=== PATIENT | male | born 1945 | race Caucasian/White ===

== ENCOUNTER 2018-02-07 04:15 | Inpatient (IN) | payer OTHER, MEDICARE ==
[~2018-02-07] VITALS: Ht 182.9 cm; Wt 102.0 kg
[~2018-02-07 04:15] MED LIST: ACEHYDSO; ASPI81EC; CIPHYDOTSU; DILT360ER; FLUV40; GABA300; GLYB5; HYDMETSO; INS70/30I; LISI20; METF500; METO50; MORP30ER; NEOBACHC15; NIAC500; OMEP20ER; SPIR50
[2018-02-07] MEDS ORDERED: ALBU90OI INH (04:36)
[2018-02-07] MEDS ORDERED: AMLO10 PO (04:36)
[2018-02-07] MEDS ORDERED: VITAMIN C500 M1 PO (04:38)
[2018-02-07] MEDS ORDERED: GERI-HYDROLAC222 ML TOP (04:38)
[2018-02-07] MEDS ORDERED: CALCIPOTRIENE60 G1 TOP (04:39)
[2018-02-07] MEDS ORDERED: ATOR10 PO (04:39)
[2018-02-07] MEDS ORDERED: CARV25 PO (04:40)
[2018-02-07] MEDS ORDERED: CHOL10002 PO (04:40)
[2018-02-07] MEDS ORDERED: DULO30 PO (04:41)
[2018-02-07] MEDS ORDERED: VITAMIN D250000 UNIT PO (04:41)
[2018-02-07] MEDS ORDERED: FURO40 PO (04:43)
[2018-02-07] MEDS ORDERED: FLONASE ALLERG9.9 ML (04:43)
[2018-02-07] MEDS ORDERED: HYDRA50 PO (04:44)
[2018-02-07] MEDS ORDERED: INSR10I SC ×2 (04:45→04:46)
[2018-02-07] MEDS ORDERED: Omeprazole20 M1 PO (04:47)
[2018-02-07] MEDS ORDERED: Acidophilus La100 GM PO (04:47)
[2018-02-07] MEDS ORDERED: OXYC5 PO (04:49)
[2018-02-07] MEDS ORDERED: Oxycodone HCl20 M1 PO (04:50)
[2018-02-07] MEDS ORDERED: POTCHL10ER PO (04:50)
[2018-02-07] MEDS ORDERED: PRAZ2 PO (04:52)
[2018-02-07] MEDS ORDERED: TIOT18 INH (04:52)
[2018-02-07] MEDS ORDERED: WARF5 PO (04:53)
[2018-02-07 06:41] LABS: Percent Saturation 14.4 % (20.0-50.0)
[2018-02-07] MEDS ORDERED: FISH OIL 1,0001 EAC1 PO (07:49)
[2018-02-08 04:53] LABS: International Normalized Ratio 2.91; Prothrombin Time Results 31.3 Sec (9.7-11.5)
[2018-02-08 04:59] LABS: Bun/Creatinine Ratio 19.5 (12.0-20.0); Calcium, Blood 8.6 mg/dL (8.5-10.1); Creatinine, Blood 2.15 mg/dL (0.60-1.20); Potassium, Blood 4.3 mmol/L (3.5-5.5)
[2018-02-08] MEDS ORDERED: INSULANPEN SC ×2 (07:41→07:42)
[2018-02-09 04:23] LABS: International Normalized Ratio 1.89; Prothrombin Time Results 20.1 Sec (9.7-11.5)
[2018-02-09 04:30] LABS: Bun/Creatinine Ratio 20.9 (12.0-20.0); Calcium, Blood 8.6 mg/dL (8.5-10.1); Creatinine, Blood 2.54 mg/dL (0.60-1.20)
[2018-02-10 04:24] LABS: International Normalized Ratio 1.83; Prothrombin Time Results 19.4 Sec (9.7-11.5)
[2018-02-10 04:41] LABS: Albumin, Blood 2.5 g/dL (3.4-5.0); Anion Gap 9 mmol/L (6-16); Blood Urea Nitrogen 60 mg/dL (8-24); Bun/Creatinine Ratio 24.9 (12.0-20.0); CO2, Blood 25 mmol/L (21-32); Calcium, Blood 8.3 mg/dL (8.5-10.1); Chloride, Blood 108 mmol/L (98-108); Creatinine, Blood 2.41 mg/dL (0.60-1.20); Glomerular Filtration Rate 28 (60-); Glucose, Blood 154 mg/dL (70-99); Phosphorus, Blood 4.3 mg/dL (2.5-4.9); Potassium, Blood 4.6 mmol/L (3.5-5.5); Sodium, Blood 142 mmol/L (136-145)
[2018-02-10] MEDS ORDERED: VISBIOME 112.51 EACH PO (10:17)
== END 2018-02-10 10:38 | disposition home or self-care (01) | DRG 291 ==
LOC: ER 04:15 → PCU 04:22 → MEDS 05:39 → PCU 05:41 → MEDS 02-08 15:34
PROVIDERS: Family Medicine; Internal Medicine
DX: I13.0 Hypertensive heart and chronic kidney disease with heart failure and stage 1 through stage 4 chronic kidney disease, or unspecified chronic kidney disease (principal); I50.33 Acute on chronic diastolic (congestive) heart failure; N17.9 Acute kidney failure, unspecified; E11.22 Type 2 diabetes mellitus with diabetic chronic kidney disease; N18.3 Chronic kidney disease, stage 3 (moderate); R00.1 Bradycardia, unspecified; I48.2 Chronic atrial fibrillation; J44.9 Chronic obstructive pulmonary disease, unspecified; E55.9 Vitamin D deficiency, unspecified; D50.9 Iron deficiency anemia, unspecified; E78.5 Hyperlipidemia, unspecified; E11.51 Type 2 diabetes mellitus with diabetic peripheral angiopathy without gangrene; F43.12 Post-traumatic stress disorder, chronic; E11.40 Type 2 diabetes mellitus with diabetic neuropathy, unspecified; Z79.01 Long term (current) use of anticoagulants; Z79.4 Long term (current) use of insulin; Z79.891 Long term (current) use of opiate analgesic; Z79.51 Long term (current) use of inhaled steroids; Z79.899 Other long term (current) drug therapy; Z88.1 Allergy status to other antibiotic agents; Z88.5 Allergy status to narcotic agent; Z88.0 Allergy status to penicillin; Z88.8 Allergy status to other drugs, medicaments and biological substances
CPT/HCPCS: 36415; 80048; 80069; 82728; 82947; 83036; 83540; 83550; 85610; 93306; 94640; 94760; 99285; J1815; J1940

== ENCOUNTER 2018-10-15 11:44 | Day surgery (SDC) | payer OTHER ==
[~2018-10-15] VITALS: Ht 182.9 cm; Wt 97.1 kg
[~2018-10-15 11:44] MED LIST changes: +ALBU90OI INH; +AMLO10 PO; +ATOR10 PO; +Acidophilus La100 GM PO; +CALCIPOTRIENE60 G1 TOP; +CARV25 PO; +CHOL10002 PO; +DULO30 PO; +FISH OIL 1,0001 EAC1 PO; +FLONASE ALLERG9.9 ML; +FURO40 PO; +GERI-HYDROLAC222 ML TOP; +HYDRA50 PO; +INSR10I SC; +INSULANPEN SC; +OXYC5 PO; +Omeprazole20 M1 PO; +Oxycodone HCl20 M1 PO; +POTCHL10ER PO; +PRAZ2 PO; +TIOT18 INH; +VISBIOME 112.51 EACH PO; +VITAMIN C500 M1 PO; +VITAMIN D250000 UNIT PO; +WARF5 PO
--- NOTE | 2018-10-15 14:20 | NUR ---
10/15/18 1420 Candice Natarajan [facility].RXS RECIEVED REPORT FROM [facility].[place]
== END 2018-10-15 15:44 | disposition home or self-care (01) ==
LOC: ORSCSDS 11:44
PROVIDERS: Internal Medicine Gastroenterology
PROC: 0DBN8ZX Excision of Sigmoid Colon, Via Natural or Artificial Opening Endoscopic, Diagnostic (ICD-10-PCS; principal; 2018-10-15 13:00)
PROC: 0DBK8ZX Excision of Ascending Colon, Via Natural or Artificial Opening Endoscopic, Diagnostic (ICD-10-PCS; principal; 2018-10-15 13:00)
PROC: 0DBH8ZX Excision of Cecum, Via Natural or Artificial Opening Endoscopic, Diagnostic (ICD-10-PCS; principal; 2018-10-15 13:00)
PROC: 0DBL8ZX Excision of Transverse Colon, Via Natural or Artificial Opening Endoscopic, Diagnostic (ICD-10-PCS; principal; 2018-10-15 13:00)
DX: Z12.11 Encounter for screening for malignant neoplasm of colon (principal); Z80.0 Family history of malignant neoplasm of digestive organs; Z86.010 Personal history of colon polyps; D12.3 Benign neoplasm of transverse colon; D12.2 Benign neoplasm of ascending colon; D12.0 Benign neoplasm of cecum; D12.5 Benign neoplasm of sigmoid colon; I10 Essential (primary) hypertension; J44.9 Chronic obstructive pulmonary disease, unspecified; G47.33 Obstructive sleep apnea (adult) (pediatric); E11.9 Type 2 diabetes mellitus without complications; Z87.891 Personal history of nicotine dependence; Z99.81 Dependence on supplemental oxygen; Z79.01 Long term (current) use of anticoagulants; Z79.899 Other long term (current) drug therapy
CPT/HCPCS: 82947; 88305; 93005; 93010; J7040; J7120

== ENCOUNTER 2019-07-01 10:19 | Inpatient (IN) | payer OTHER ==
[~2019-07-01] VITALS: Ht 182.9 cm; Wt 90.0 kg
[~2019-07-01 10:19] MED LIST changes: +HYDRA25 PO; -HYDRA50 PO; +OXYC10TA19 PO; -Oxycodone HCl20 M1 PO; -PRAZ2 PO; +Prazosin HCl2 MG PO
[2019-07-01 11:11] LABS: BASOPHILS ABSOLUTE AUTO 0.03 K/mm3 (0.00-0.23); BASOPHILS PERCENT AUTO 1 % (0-2); EOSINOPHILS PERCENT AUTO 4 % (0-6); Hematocrit 31.1 % (37.0-53.0); Hemoglobin 9.5 g/dL (13.5-17.5); IMMATURE GRAN ABSOLUTE AUTO 0.02 K/mm3 (0.00-0.10); IMMATURE GRAN PERCENT AUTO 0 % (0-1); LYMPHOCYTES ABSOLUTE AUTO 0.48 K/mm3 (0.84-5.20); LYMPHOCYTES PERCENT AUTO 8 % (21-46); MONOCYTES ABSOLUTE AUTO 0.63 K/mm3 (0.16-1.47); MONOCYTES PERCENT AUTO 11 % (4-13); Mean Corpuscular HGB 30.2 pg (26.0-34.0); Mean Corpuscular HGB Conc 30.5 g/dL (31.5-36.5); Mean Corpuscular Volume 99 fL (80-100); Mean Platelet Volume 9.5 fL (9.1-12.4); NEUTROPHILS ABSOLUTE AUTO 4.34 K/mm3 (1.96-9.15); NEUTROPHILS PERCENT AUTO 76 % (41-73); Platelet Count 167 K/mm3 (150-400); RDW Coefficient Variation 14.1 % (11.7-14.2); RDW Standard Deviation 50.8 fL (35.1-46.3); Red Blood Cell Count 3.15 M/mm3 (4.30-5.90)
[2019-07-01 11:28] LABS: Albumin, Blood 3.2 g/dL (3.4-5.0); Albumin/Globulin Ratio 0.9 (0.8-1.8); Bilirubin, Total 0.6 mg/dL (0.1-1.0); Bun/Creatinine Ratio 23.3 (12.0-20.0); Calcium, Blood 8.4 mg/dL (8.5-10.1); Creatinine, Blood 3.61 mg/dL (0.60-1.20); Globulin, Blood 3.5 g/dL (2.2-4.0); Potassium, Blood 3.8 mmol/L (3.5-5.5); Total Protein, Blood 6.7 g/dL (6.4-8.2)
[2019-07-01] MEDS ORDERED: FERSU300 PO (11:56)
[2019-07-01] MEDS ORDERED: Novolog100 UNIT/1 SC (11:59)
[2019-07-01] MEDS ORDERED: BASAGLAR K100 UNIT/1 SC (12:00)
[2019-07-01] MEDS ORDERED: Isosorbide Mono60 MG PO (12:01)
[2019-07-01] MEDS ORDERED: Vision Vitamin1 EAC1 PO (12:01)
[2019-07-01] MEDS ORDERED: STIOLTO RESPIMAT4 GM INH (12:02)
[2019-07-01] MEDS ORDERED: RENAL VITAMIN0.8 MG PO (12:04)
[2019-07-01] MEDS ORDERED: Ranitidine HCl300 M1 PO (12:04)
[2019-07-01] MEDS ORDERED: PROP120ER PO (12:04)
[2019-07-01] MEDS ORDERED: SODBIC650 PO (12:05)
[2019-07-01] MEDS ORDERED: Ropinirole HCl2 MG PO (12:05)
[2019-07-01] MEDS ORDERED: TORSE20 PO (12:06)
[2019-07-01] MEDS ORDERED: SUCR1 PO (12:06)
[2019-07-01] MEDS ORDERED: WARF2.5 PO (12:08)
[2019-07-01 13:44] LABS: Source, Urine Voided
[2019-07-01 13:57] LABS: Bilirubin, Urine Neg (Neg); Blood, Urine 2+ (Neg); Glucose Qualitative, Urine Neg (Neg); Ketones, Urine Neg (Neg); Leukocyte Esterase, Urine 2+ (Neg); Nitrite, Urine Pos (Neg); Protein, Urine 3+ (Neg); Urobilinogen, Urine NORM (Normal)
[2019-07-01 14:08] LABS: Appearance, Urine Hazy (Clear); Color, Urine Yellow (P-Yellow)
[2019-07-01 14:10] LABS: White Blood Cells, Urine 50-100 /hpf (0-5)
[2019-07-01 14:11] LABS: Bacteria Few /hpf; Squamous Epithelial Cells Few /hpf (Few)
[2019-07-01 14:30] LABS: International Normalized Ratio 3.12; Prothrombin Time Results 29.8 Sec (9.7-11.5)
--- NOTE | 2019-07-01 16:50 | NUR ---
PT. ARRIVED TO FLOOR VIA CART FROM ER. PT. A&O, PLEASANT AND COOPERATIVE. NO CHANGES NOTED SINCE ARRIVAL TO FLOOR.
[2019-07-02 04:53] LABS: BASOPHILS ABSOLUTE AUTO 0.01 K/mm3 (0.00-0.23); BASOPHILS PERCENT AUTO 0 % (0-2); EOSINOPHILS ABSOLUTE AUTO 0.11 K/mm3 (0.00-0.68); EOSINOPHILS PERCENT AUTO 2 % (0-6); Hemoglobin 9.8 g/dL (13.5-17.5); IMMATURE GRAN ABSOLUTE AUTO 0.02 K/mm3 (0.00-0.10); IMMATURE GRAN PERCENT AUTO 0 % (0-1); LYMPHOCYTES ABSOLUTE AUTO 0.37 K/mm3 (0.84-5.20); LYMPHOCYTES PERCENT AUTO 6 % (21-46); MONOCYTES ABSOLUTE AUTO 0.48 K/mm3 (0.16-1.47); MONOCYTES PERCENT AUTO 8 % (4-13); Mean Corpuscular HGB 29.7 pg (26.0-34.0); Mean Corpuscular HGB Conc 29.7 g/dL (31.5-36.5); Mean Corpuscular Volume 100 fL (80-100); Mean Platelet Volume 9.5 fL (9.1-12.4); NEUTROPHILS ABSOLUTE AUTO 5.08 K/mm3 (1.96-9.15); NEUTROPHILS PERCENT AUTO 84 % (41-73); Platelet Count 153 K/mm3 (150-400); RDW Coefficient Variation 14.3 % (11.7-14.2); RDW Standard Deviation 51.7 fL (35.1-46.3); White Blood Cell Count 6.07 K/mm3 (4.00-11.30)
--- NOTE | 2019-07-02 05:06 | NUR ---
SHIFT SUMMARY: 73 Y/O MALE SBA IN THE ROOM. WHO HAS SLEPT OFF AND ON THROUGHOUT THE NIGHT, HE DID WAKE UP THIS NIGHT WITH HULLUCINATIONS OF BUGS ON HIS BED AND DID NOT KNOW WHERE HE WAS AT. HE WAS EASILY REORIENTED. HE DID COMPLAIN OF PAIN X1 TO HIS LEGS AND BACK. REPOSITION AND MEDS WERE GIVEN. EDEMA NOTICED +2 TO BLE. BS WAS 172 LANTUS WAS GIVEN. HE REQUIRED INHALER USE AT HOME THEREFORE GOT ORDER FOR ALBUTEROL NEBULIZER TREATMENTS. HE RECIEVED 2 TX THIS SHIFT WHICH HELPED TO RELEIVE HIS BREATHING. URINE OUTPUT 650 OF YET THIS SHIFT. MEDS WERE GIVEN PER EMAR. CALL LIGHT REMAINED IN REACH AND USED APPROPRIATLY, WILL REPORT TO DAY SHIFT RN.
[2019-07-02 05:07] LABS: International Normalized Ratio 3.19; Prothrombin Time Results 30.4 Sec (9.7-11.5)
[2019-07-02 05:26] LABS: Albumin, Blood 2.9 g/dL (3.4-5.0); Anion Gap 9 mmol/L (6-16); Blood Urea Nitrogen 78 mg/dL (8-24); Bun/Creatinine Ratio 23.5 (12.0-20.0); CO2, Blood 20 mmol/L (21-32); Calcium, Blood 8.1 mg/dL (8.5-10.1); Chloride, Blood 114 mmol/L (98-108); Creatinine, Blood 3.32 mg/dL (0.60-1.20); Glomerular Filtration Rate 18 (60-); Glucose, Blood 173 mg/dL (70-99); Phosphorus, Blood 4.5 mg/dL (2.5-4.9); Sodium, Blood 143 mmol/L (136-145)
[2019-07-02] MEDS ORDERED: ANTI-ITCH LOTI222 ML TOP (16:06)
--- NOTE | 2019-07-02 18:06 | NUR ---
Spiritual Care intial note: Saad was welcoming of companionship and encouragement. He is not particularly denominational, but was appreciaitive of theraputic listening and gentle business and financial counsel. He listed he reasons for hospitalization as :"I'm starting dialysis, my prostrate cancer is back, and they're gonna amputate my toes." He is calm as he reports this. "I don't worry about things. What's the point?" Saad cares for his sister is also quite ill. He admits he is worried about how his illnesses will affect her. I assured Saad of excellent care and encouraged patience until clear POC is determined. Also advised there is help available in the community when/if they need it. Saad will benefit from continued emotional support as POC unfolds. [facility] will remain available.
--- NOTE | 2019-07-02 19:19 | NUR ---
PT. SITTING IN BED WATCHING TV. DENIES PAIN, SOB, OR NAUSEA AT THIS TIME. DR. RICHARDSON CAME TO SEE PT. THIS AFTERNOON AND REQUESTED WE KEEP HIM NPO AFTER MIDNOC. NO NOTEABLE CHANGES THIS SHIFT.
[2019-07-03 05:08] LABS: BASOPHILS ABSOLUTE AUTO 0.01 K/mm3 (0.00-0.23); BASOPHILS PERCENT AUTO 0 % (0-2); EOSINOPHILS ABSOLUTE AUTO 0.21 K/mm3 (0.00-0.68); EOSINOPHILS PERCENT AUTO 3 % (0-6); Hematocrit 32.2 % (37.0-53.0); Hemoglobin 9.7 g/dL (13.5-17.5); IMMATURE GRAN ABSOLUTE AUTO 0.01 K/mm3 (0.00-0.10); IMMATURE GRAN PERCENT AUTO 0 % (0-1); LYMPHOCYTES ABSOLUTE AUTO 0.31 K/mm3 (0.84-5.20); LYMPHOCYTES PERCENT AUTO 5 % (21-46); MONOCYTES ABSOLUTE AUTO 0.54 K/mm3 (0.16-1.47); MONOCYTES PERCENT AUTO 9 % (4-13); Mean Corpuscular HGB 29.9 pg (26.0-34.0); Mean Corpuscular HGB Conc 30.1 g/dL (31.5-36.5); Mean Corpuscular Volume 99 fL (80-100); Mean Platelet Volume 9.6 fL (9.1-12.4); NEUTROPHILS ABSOLUTE AUTO 5.25 K/mm3 (1.96-9.15); NEUTROPHILS PERCENT AUTO 83 % (41-73); Platelet Count 174 K/mm3 (150-400); RDW Coefficient Variation 14.3 % (11.7-14.2); RDW Standard Deviation 52.2 fL (35.1-46.3); Red Blood Cell Count 3.24 M/mm3 (4.30-5.90); White Blood Cell Count 6.33 K/mm3 (4.00-11.30)
[2019-07-03 05:30] LABS: International Normalized Ratio 2.69; Prothrombin Time Results 26.1 Sec (9.7-11.5)
[2019-07-03 05:32] LABS: Anion Gap 7 mmol/L (6-16); Blood Urea Nitrogen 74 mg/dL (8-24); Bun/Creatinine Ratio 23.3 (12.0-20.0); CO2, Blood 24 mmol/L (21-32); Calcium, Blood 8.4 mg/dL (8.5-10.1); Chloride, Blood 112 mmol/L (98-108); Creatinine, Blood 3.17 mg/dL (0.60-1.20); Glomerular Filtration Rate 21 (60-); Glucose, Blood 165 mg/dL (70-99); Phosphorus, Blood 3.5 mg/dL (2.5-4.9); Sodium, Blood 143 mmol/L (136-145)
--- NOTE | 2019-07-03 06:18 | NUR ---
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 PT AAOX4 AND PLEASANT. CONTINUES ON IV ABX. PT DENIES PAIN OF WOUND ON L FOOT. MRI SCREENING FORM SENT FOR PT TO FILL OUT FOR LATER THIS AM, HOWEVER PT REPORTS HE CAN'T HAVE AN MRI DUE TO A PREVIOUS BRAIN SURGERY. VSS, WILL CONTINUE TO MONITOR.
--- NOTE | 2019-07-03 16:27 | NUR ---
SHIFT SUMMARY PLAN FOR SURGERY DELAYED TILL SATURDAY OR SATURDAY NEXT WEEK. PT GIVEN ADA DIET. TOLERATING WELL. PT FLUIDS DC'ED AT THIS TIME WHILE PT IS EATING & DRINKING. NO OTHER CHANGES IN ASSESSMENT AT THIS TIME. VSS. MEDICATED FOR PAIN ONCE THIS SHIFT. WILL CONTINUE TO MONITOR UNTIL TURNOVER IS COMPLETE.
--- NOTE | 2019-07-03 18:42 | NUR ---
PT DESATED PT DESATED TO 86 ON RA. PT PLACED BACK ON 2L O2 VIA NC. PT SATING IN THE S NOW. RT NOTIFIED. WILL CONTINUE TO MONITOR.
[2019-07-04 04:33] LABS: BASOPHILS ABSOLUTE AUTO 0.02 K/mm3 (0.00-0.23); BASOPHILS PERCENT AUTO 0 % (0-2); EOSINOPHILS ABSOLUTE AUTO 0.21 K/mm3 (0.00-0.68); EOSINOPHILS PERCENT AUTO 4 % (0-6); Hematocrit 32.1 % (37.0-53.0); Hemoglobin 9.8 g/dL (13.5-17.5); IMMATURE GRAN ABSOLUTE AUTO 0.02 K/mm3 (0.00-0.10); IMMATURE GRAN PERCENT AUTO 0 % (0-1); LYMPHOCYTES ABSOLUTE AUTO 0.43 K/mm3 (0.84-5.20); LYMPHOCYTES PERCENT AUTO 7 % (21-46); MONOCYTES ABSOLUTE AUTO 0.57 K/mm3 (0.16-1.47); MONOCYTES PERCENT AUTO 10 % (4-13); Mean Corpuscular HGB 30.2 pg (26.0-34.0); Mean Corpuscular HGB Conc 30.5 g/dL (31.5-36.5); Mean Corpuscular Volume 99 fL (80-100); Mean Platelet Volume 9.2 fL (9.1-12.4); NEUTROPHILS ABSOLUTE AUTO 4.72 K/mm3 (1.96-9.15); NEUTROPHILS PERCENT AUTO 79 % (41-73); Platelet Count 165 K/mm3 (150-400); RDW Coefficient Variation 14.3 % (11.7-14.2); RDW Standard Deviation 52.4 fL (35.1-46.3); Red Blood Cell Count 3.25 M/mm3 (4.30-5.90); White Blood Cell Count 5.97 K/mm3 (4.00-11.30)
[2019-07-04 04:49] LABS: International Normalized Ratio 2.04; Prothrombin Time Results 20.3 Sec (9.7-11.5)
[2019-07-04 04:53] LABS: Anion Gap 7 mmol/L (6-16); Blood Urea Nitrogen 75 mg/dL (8-24); Bun/Creatinine Ratio 24.8 (12.0-20.0); CO2, Blood 23 mmol/L (21-32); Calcium, Blood 8.5 mg/dL (8.5-10.1); Chloride, Blood 113 mmol/L (98-108); Creatinine, Blood 3.03 mg/dL (0.60-1.20); Glomerular Filtration Rate 22 (60-); Glucose, Blood 170 mg/dL (70-99); Phosphorus, Blood 3.3 mg/dL (2.5-4.9); Potassium, Blood 3.9 mmol/L (3.5-5.5); Sodium, Blood 143 mmol/L (136-145)
--- NOTE | 2019-07-04 05:01 | NUR ---
SHIFT SUMMARY: PT IS ALERT AND ORIENTED. PT IS CALM AND COOPERATIVE WITH CARE. PT CALLS APPROPRIATELY. PT IS A STANDBY ASSIST. PT WENT FOR CT OF LLE EARLY IN THE SHIFT. PT REPORTS INTERMITTENT SOB, O2 2 L PRN, BREATHING TREATMENTS PRN. PT REPORTS LLE PAIN ON ONE OCCASION, GAVE PRN OXYCODONE. PT DENIES NAUSEA AND VOMITING. PT SLEPT INTERMITTENTLY THROUGHOUT THE NIGHT. BED IN LOW POSITION, CALL LIGHT WITHIN REACH. WILL CONTINUE TO MONITOR.
--- NOTE | 2019-07-04 18:30 | NUR ---
SHIFT SUMMARY PATIENT ALERT AND ORIENTED X4, STANDBY ASSIST. C/O CHRONIC BILAT LOWER LEG ACHING/THROBBING PAIN, GIVEN OXYCODONE ONCE. HE STATES THERE IS SOME NEW PAIN ON THE INSIDE OF THE L KNEE AREA, THERE IS SLIGHT REDNESS. COUMADIN HELD FOR POSSIBLE SURGERY SATURDAY. BILAT PEDAL PULSES ARE THREADY, R FOOT HAS +2 EDEMA, L FOOT HAS +1. PT VOIDING WELL, LUNGS CTA.
--- NOTE | 2019-07-05 03:26 | NUR ---
SHIFT SUMMARY: PT IS ALERT AND ORIENTED. PT IS CALM, FRIENDLY, AND COOPERATIVE WITH CARE. PT CALLS APPROPRIATELY. PT IS A STANDBY ASSIST. PT CONTINUES TO REPORT BLE PAIN, CALLED DR. OVIEDO AND RECEIVED AN INCREASE IN FREQUENCY FOR THE OXYCODONE TO Q6H PRN. PT REPORTS INTERMITTENT SOB O2 NEEDED, SATS > 90%. PT DENIES NAUSEA AND VOMITING. PT SLEPT INTERMITTENTLY THROUGHOUT THE NIGHT. NO ACUTE CHANGES OR COMPLICATIONS. WILL CONTINUE TO MONITOR.
[2019-07-05 04:39] LABS: Hematocrit 31.3 % (37.0-53.0); Hemoglobin 9.5 g/dL (13.5-17.5)
[2019-07-05 04:54] LABS: International Normalized Ratio 2.04; Prothrombin Time Results 20.3 Sec (9.7-11.5)
[2019-07-05 05:03] LABS: Anion Gap 8 mmol/L (6-16); Blood Urea Nitrogen 78 mg/dL (8-24); CO2, Blood 23 mmol/L (21-32); Calcium, Blood 8.4 mg/dL (8.5-10.1); Chloride, Blood 113 mmol/L (98-108); Glomerular Filtration Rate 22 (60-); Glucose, Blood 95 mg/dL (70-99); Potassium, Blood 3.7 mmol/L (3.5-5.5); Sodium, Blood 144 mmol/L (136-145)
--- NOTE | 2019-07-05 18:30 | NUR ---
SHIFT SUMMARY NO ACUTE CHANGES OR COMPLICATIONS WITH PATIENT. PT CALLS APPROPRIATELY, VOIDING WELL, BLOOD SUGARS CONTROLLED. PATIENT WALKED IN FLEMING WITH FWW. PT WEARS 2L 02 PRN, WEARING NOW.
--- NOTE | 2019-07-06 04:31 | NUR ---
SHIFT SUMMARY- PT. A&O, PLEASANT AND COOPERATIVE WITH CARE. SBA WITH WALKER. SCHEDULED FOR SURGERY THIS AM FOR AMPUTATION OF THE THIRD MIDDLE TOE OF THE LET FOOT DUE TO OSTEOMYELITIS. PT. HAS BEEN NPO SINCE MIDNIGHT. ON VIA OH. REQUESTED PAIN MEDICATION X1 T/O THE NIGHT. RESTED WELL T/O THE SHIFT. DENIED ANY OTHER NEEDS. CALL LIGHT WITHIN REACH AND SIDE RAILS UP X2. WILL CONT TO MONITOR.
[2019-07-06 05:07] LABS: BASOPHILS ABSOLUTE AUTO 0.01 K/mm3 (0.00-0.23); BASOPHILS PERCENT AUTO 0 % (0-2); EOSINOPHILS ABSOLUTE AUTO 0.27 K/mm3 (0.00-0.68); EOSINOPHILS PERCENT AUTO 5 % (0-6); Hemoglobin 8.8 g/dL (13.5-17.5); IMMATURE GRAN ABSOLUTE AUTO 0.03 K/mm3 (0.00-0.10); IMMATURE GRAN PERCENT AUTO 1 % (0-1); LYMPHOCYTES PERCENT AUTO 9 % (21-46); MONOCYTES ABSOLUTE AUTO 0.74 K/mm3 (0.16-1.47); MONOCYTES PERCENT AUTO 13 % (4-13); Mean Corpuscular HGB Conc 30.3 g/dL (31.5-36.5); Mean Corpuscular Volume 99 fL (80-100); Mean Platelet Volume 9.4 fL (9.1-12.4); NEUTROPHILS ABSOLUTE AUTO 4.13 K/mm3 (1.96-9.15); NEUTROPHILS PERCENT AUTO 73 % (41-73); Platelet Count 147 K/mm3 (150-400); RDW Coefficient Variation 14.1 % (11.7-14.2); RDW Standard Deviation 51.3 fL (35.1-46.3); Red Blood Cell Count 2.93 M/mm3 (4.30-5.90); White Blood Cell Count 5.68 K/mm3 (4.00-11.30)
[2019-07-06 05:24] LABS: Albumin, Blood 2.8 g/dL (3.4-5.0); Anion Gap 6 mmol/L (6-16); Blood Urea Nitrogen 82 mg/dL (8-24); Bun/Creatinine Ratio 26.6 (12.0-20.0); CO2, Blood 27 mmol/L (21-32); Calcium, Blood 8.3 mg/dL (8.5-10.1); Chloride, Blood 112 mmol/L (98-108); Creatinine, Blood 3.08 mg/dL (0.60-1.20); Glomerular Filtration Rate 21 (60-); Glucose, Blood 96 mg/dL (70-99); Phosphorus, Blood 3.4 mg/dL (2.5-4.9); Potassium, Blood 3.5 mmol/L (3.5-5.5); Sodium, Blood 145 mmol/L (136-145)
[2019-07-06 05:24] LABS: International Normalized Ratio 1.7; Prothrombin Time Results 17.2 Sec (9.7-11.5)
--- NOTE | 2019-07-06 11:16 | NUR ---
Physician notified Dr. Giron notified RE noon blood sugar of 69. Orders received.
--- NOTE | 2019-07-06 15:13 | NUR ---
Advance directive packet given for pt and family to review. will follow up with plan of care and pain managment after surgery
--- NOTE | 2019-07-06 16:42 | NUR ---
Spiritual Care routine visit: Prayer for a successful surgery provided at bedside. Two of his sisters were present. Pt and family appreciative of spiritual support. Surgery this afternoon. I will remain available.
--- NOTE | 2019-07-06 17:55 | NUR ---
Shift Summary A/Ox4. Pleasant and cooperative with care. Pt had family visiting t/o the day. Surgery for amputation of toe is dc'd per Dr. Boles; Dr. Garrison consulted by Elvi. Medicated for pain x 1. No c/o N/V/D. Pt ambulating in room independently. Adventitious lung sounds auscultated (see assessment). Blood sugar check was 69 @ noon. Orders received and given per EMAR. Blood sugars were reassessed t/o shift. Before dinner, it was 84. No other acute changes this shift.
--- NOTE | 2019-07-07 04:42 | NUR ---
SHIFT SUMMARY- PT. RESTED WELL T/O THE NIGHT. BS LAST NIGHT AT 292. CHANGE IN FLUID RATE DONE PER ORDER. PAIN MED GIVEN 1X THIS SHIFT. PT. DENIED ANY OTHER NEEDS T/O THE NIGHT. AWAITING F/U WITH DR. MELENDEZ, CALL LIGHT WITHIN REACH AND SIDE RAILS UP X2. WILL CONT TO MONITOR.
[2019-07-07 05:06] LABS: International Normalized Ratio 1.58; Prothrombin Time Results 16.1 Sec (9.7-11.5)
--- NOTE | 2019-07-07 18:15 | NUR ---
PHYSICIAN NOTIFIED DR. MELENDEZ NOTIFIED WHETHER TO HOLD OR GIVE COUMADIN D/T POSSIBLE PROCEDURE TOMORROW. PER MD ORDER, COUMADIN HELD.
--- NOTE | 2019-07-07 18:45 | NUR ---
Shift Summary A/O x 4. Pt has been up independently in room. There is a possible chance pt may get a procedure tomorrow to revascularize left leg by Dr. Garrison; however, Felipe has been consulted d/t kidney status. No acute changes this shift. Pt is eager to know next steps. VSS, afebrile.
--- NOTE | 2019-07-08 04:39 | NUR ---
SHIFT SUMMARY- PT. SLEPT ON/OFF T/O THE NIGHT, NO APPARENT DISTRESS NOTED. PT. ANTICIPATING FOR DR. MELENDEZ TO PERFORM REVASCULARIZATION. DR. PICKARD TO F/U RE KIDNEY STATUS BEFORE PROCEDURE. PT. ON IV ABX'S, TOLERATING WELL. VSS, BUT O2 SATS AT 88% ON RA. PLACED PT. ON 2L NC, SATS UP TO 93%. PT. GIVEN PAIN MED 1X THIS EVENING. DENIED ANY NEEDS T/O THE NIGHT. CALL LIGHT WITHIN REACH AND SIDE RAILS UP X2. WILL CONT TO MONITOR.
[2019-07-08 04:49] LABS: Hematocrit 30.7 % (37.0-53.0); Hemoglobin 9.3 g/dL (13.5-17.5); Mean Corpuscular HGB 29.5 pg (26.0-34.0); Mean Corpuscular HGB Conc 30.3 g/dL (31.5-36.5); Mean Corpuscular Volume 98 fL (80-100); Mean Platelet Volume 9.5 fL (9.1-12.4); Platelet Count 151 K/mm3 (150-400); RDW Coefficient Variation 14.1 % (11.7-14.2); Red Blood Cell Count 3.15 M/mm3 (4.30-5.90); White Blood Cell Count 5.36 K/mm3 (4.00-11.30)
[2019-07-08 05:02] LABS: International Normalized Ratio 1.61; Prothrombin Time Results 16.3 Sec (9.7-11.5)
[2019-07-08 05:09] LABS: Albumin, Blood 3.1 g/dL (3.4-5.0); Anion Gap 8 mmol/L (6-16); Blood Urea Nitrogen 87 mg/dL (8-24); Bun/Creatinine Ratio 26.8 (12.0-20.0); CO2, Blood 27 mmol/L (21-32); Calcium, Blood 8.4 mg/dL (8.5-10.1); Chloride, Blood 105 mmol/L (98-108); Creatinine, Blood 3.25 mg/dL (0.60-1.20); Glomerular Filtration Rate 20 (60-); Glucose, Blood 223 mg/dL (70-99); Magnesium, Blood 1.8 mg/dL (1.6-2.4); Potassium, Blood 3.5 mmol/L (3.5-5.5); Sodium, Blood 140 mmol/L (136-145)
--- NOTE | 2019-07-08 16:13 | NUR ---
HE IS SITTING UP AT THE SIDE OF THE BED WORKING A CROSSWORD PUZZLE. HE IS UP USUALLY WITH SBA TO THE BATHROOM. HE HAS WORKED WITH PT/OT TODAY. HE IS SOB AT REST AND WITH ACTIVITY. ON RA HE SATS 89 TO 91% AT REST AND WENT DOWN TO 82% WHEN AMBULATING WITH PT. O2 ON AT 2L BECAUSE OF SATS AND HIS FEELING OF SOB. HAS DECIDED NOT TO DO THE REVASCULARIZATION PROCEDURE D/T ELIO'S POOR KIDNEY FUNCTION. HAS ASKED FOR TO SEE ELIO REGARDING ANTIBIOTIC CHOICE FOR THE OSTEOMYELITIS. HIS 3 TOES ON HIS L FOOT ARE DRY WITH SMALL SPOTS OF BLUE/BLACK DISCOLORATION. D5W 25/HR STILL INFUSING. TEDS ON BILAT. EDEMA PRESENT. MEDICATED X1 WITH OXYCODONE FOR PAIN IN HIS LEGS. IT WAS EFFECTIVE BRINGING HIS PAIN DOWN FROM 7 TO A 3.
--- NOTE | 2019-07-08 18:40 | NUR ---
Spiritual Care routine visit: Provided calm presence, theraputic listening and prayer for Saad. He states he is waiting for POC. He admits to being "a little worried." I will remain available.
--- NOTE | 2019-07-09 04:07 | NUR ---
PATIENT UNCOMFORTABLE AROUND MIDNIGHT COMPLAINING OF INABILITY TO GET TO SLEEP AND BILATERAL LEG PAIN AND FOOT PAIN. (PRIMARILY LEFT FOOT) STATED LEGS FELT "CUT OFF" IN [place]ZI STOCKINGS. STOCKINGS REMOVED AND A RECLINING CHAIR WAS BROUGHT IN FOR THE PATIENT SO THAT HE WOULD NOT SIT WITH LEGS DANGLING OVER SIDE OF BED. PAIN MUCH LESS INTENSE AND TOLERABLE AFTER APPROXIMATELY 20 MINUTES. SLEPT MOST OF NIGHT AFTER THAT. WOKE CONFUSED AND NOT WEARING 02. SATURATION CHECKED BEFORE REPLACED WAS 88%. PATIENT SAT INCREASED TO 94 WITHIN 1 -2 MINUTES. TOLERATING iv ANTIBIOTICS WITHOUT DIFFICULTY. ASKED IF HE MAY HAVE A SLEEPING MED ORDERED FOR HIM TONIGHT IF STILL HERE.
[2019-07-09 04:44] LABS: BASOPHILS ABSOLUTE AUTO 0.02 K/mm3 (0.00-0.23); BASOPHILS PERCENT AUTO 0 % (0-2); EOSINOPHILS PERCENT AUTO 4 % (0-6); Hematocrit 32.6 % (37.0-53.0); IMMATURE GRAN ABSOLUTE AUTO 0.03 K/mm3 (0.00-0.10); IMMATURE GRAN PERCENT AUTO 1 % (0-1); LYMPHOCYTES ABSOLUTE AUTO 0.52 K/mm3 (0.84-5.20); LYMPHOCYTES PERCENT AUTO 10 % (21-46); MONOCYTES ABSOLUTE AUTO 0.61 K/mm3 (0.16-1.47); MONOCYTES PERCENT AUTO 12 % (4-13); Mean Corpuscular HGB 30.4 pg (26.0-34.0); Mean Corpuscular HGB Conc 30.7 g/dL (31.5-36.5); Mean Corpuscular Volume 99 fL (80-100); Mean Platelet Volume 9.7 fL (9.1-12.4); NEUTROPHILS ABSOLUTE AUTO 3.71 K/mm3 (1.96-9.15); NEUTROPHILS PERCENT AUTO 73 % (41-73); Platelet Count 171 K/mm3 (150-400); RDW Coefficient Variation 14.5 % (11.7-14.2); Red Blood Cell Count 3.29 M/mm3 (4.30-5.90); White Blood Cell Count 5.09 K/mm3 (4.00-11.30)
[2019-07-09 04:53] LABS: International Normalized Ratio 1.61; Prothrombin Time Results 16.3 Sec (9.7-11.5)
[2019-07-09 04:57] LABS: Albumin, Blood 3.2 g/dL (3.4-5.0); Anion Gap 9 mmol/L (6-16); Blood Urea Nitrogen 91 mg/dL (8-24); Bun/Creatinine Ratio 28.4 (12.0-20.0); C-REACTIVE PROTEIN, EXT RANGE 0.684 mg/dL (0.000-0.300); CO2, Blood 26 mmol/L (21-32); Calcium, Blood 8.5 mg/dL (8.5-10.1); Chloride, Blood 105 mmol/L (98-108); Glomerular Filtration Rate 20 (60-); Glucose, Blood 252 mg/dL (70-99); Magnesium, Blood 2.1 mg/dL (1.6-2.4); Phosphorus, Blood 3.4 mg/dL (2.5-4.9); Potassium, Blood 3.8 mmol/L (3.5-5.5); Sodium, Blood 140 mmol/L (136-145)
--- NOTE | 2019-07-09 11:43 | NUR ---
HE HAS NO NEW COMPLAINTS. HIS LEGS HURT BUT HE HAS NOT WANTED ANY OXYCODONE YET TODAY. HE HAD HIS HOME O2 EVAL. IT SHOWED NO NEED FOR HOME O2. IS WITH HIM NOW CONSULTING ABOUT ANTIBIOTIC TREATMENT FOR THE OSTEOMYLITIS.
[2019-07-09] MEDS ORDERED: VENLAFAXINE HC150 MG PO (16:01)
[2019-07-09] MEDS ORDERED: Bumetanide2 MG PO (16:02)
[2019-07-09] MEDS ORDERED: AMOCLA250S PO (16:03)
[2019-07-09] MEDS ORDERED: DOCU100 PO (16:04)
[2019-07-09] MEDS ORDERED: Vsl#3 Capsule1 EACH PO (16:05)
--- NOTE | 2019-07-09 16:18 | NUR ---
Spiritual Care routine visit: Saad admits to being worried about the choices he needs to make. He tells me he has seen how dialysis has limited his sister's life. "I want to be active, and able to travel to see my grandkids." That said, he would also like to have proceedure to fix his chronic leg problem, but has been told this would lead to dialysis. On one hand, Saad states, "I've had a good life. I guess I am ready." On the other hand, he also tells me he wants to see his grandkids continue to grow-up. I provided emotional affirmation and prayer at his request. He plans on talking to Dr. Wang this week. Saad is very clear, though, that if he can't "stay active and go do the things I love, I'm not sure I'd want to live like that." [facility] will remain available.
--- NOTE | 2019-07-09 18:05 | NUR ---
[place] [id number].
== END 2019-07-09 16:35 | disposition home or self-care (01) | DRG 637 ==
LOC: ER 10:19 → MEDS 10:20 → ENPENDDIS 07-09 14:51 → MEDS 07-09 16:35
PROVIDERS: Internal Medicine; Internal Medicine Nephrology; Pharmacist; Physician Assistant; ADMIT Internal Medicine
DX: E11.621 Type 2 diabetes mellitus with foot ulcer (principal); J18.1 Lobar pneumonia, unspecified organism; I13.2 Hypertensive heart and chronic kidney disease with heart failure and with stage 5 chronic kidney disease, or end stage renal disease; I50.32 Chronic diastolic (congestive) heart failure; M86.672 Other chronic osteomyelitis, left ankle and foot; I48.20 Chronic atrial fibrillation, unspecified; E11.22 Type 2 diabetes mellitus with diabetic chronic kidney disease; N18.6 End stage renal disease; E11.69 Type 2 diabetes mellitus with other specified complication; E11.51 Type 2 diabetes mellitus with diabetic peripheral angiopathy without gangrene; D63.1 Anemia in chronic kidney disease; Z79.01 Long term (current) use of anticoagulants; J44.9 Chronic obstructive pulmonary disease, unspecified; Z85.47 Personal history of malignant neoplasm of testis; Z85.51 Personal history of malignant neoplasm of bladder; Z86.73 Personal history of transient ischemic attack (TIA), and cerebral infarction without residual deficits; F43.10 Post-traumatic stress disorder, unspecified; F32.9 Major depressive disorder, single episode, unspecified; C61 Malignant neoplasm of prostate; Z87.891 Personal history of nicotine dependence; N17.9 Acute kidney failure, unspecified; E78.5 Hyperlipidemia, unspecified; N25.81 Secondary hyperparathyroidism of renal origin; Z79.4 Long term (current) use of insulin
CPT/HCPCS: 36415; 71046; 73630; 73700; 76770; 80053; 80069; 81001; 82947; 83036; 83605; 83735; 83880; 84145; 85014; 85018; 85025; 85027; 85610; 85651; 86140; 87077; 87086; 87186; 93005; 93010; 93306; 93922; 94640; 94760; 94761; 96365; 96366; 96367; 96368; 96376; 97110; 97116; 97162; 97530; 99285-25; G0378; J0290; J0881; J7030; J7050; J7070; J7799

== ENCOUNTER → 2019-08-18 | Outpatient (CLI) | payer OTHER ==
[~2019-08-18] MED LIST changes: +AMOCLA250S PO; +ANTI-ITCH LOTI222 ML TOP; +ASCORBIC ACID500 MG PO; +Amlodipine Besy10 MG PO; +BASAGLAR K100 UNIT/1 SC; +Bumetanide2 MG PO; +DOCU100 PO; +DULO60 PO; +ERGO50000 PO; +FERSU300 PO; +Flonase 0.05% N16 GM; +Furosemide40 MG PO; +Isosorbide Mono60 MG PO; +LEVFLO500 PO; +Novolog100 UNIT/1 SC; +PROP120ER PO; +RENAL VITAMIN0.8 MG PO; +Ranitidine HCl300 M1 PO; +Ropinirole HCl2 MG PO; +SODBIC650 PO; +STIOLTO RESPIMAT4 GM INH; +SUCR1 PO; +THERA-D2000 UNIT PO; +TORSE20 PO; +VENLAFAXINE HC150 MG PO; +Vision Vitamin1 EAC1 PO; +Vsl#3 Capsule1 EACH PO; +WARF2.5 PO
[2019-08-18 14:26] LABS: Bilirubin, Urine Neg (Neg); Blood, Urine 2+ (Neg); Glucose Qualitative, Urine 3+ (Neg); Ketones, Urine Neg (Neg); Leukocyte Esterase, Urine 1+ (Neg); Nitrite, Urine Neg (Neg); Protein, Urine 4+ (Neg); Specific Gravity, Urine 1.015 (1.003-1.022); Urobilinogen, Urine NORM (Normal)
[2019-08-18 16:16] LABS: Appearance, Urine Clear (Clear); Color, Urine Yellow (P-Yellow)
[2019-08-18 16:17] LABS: Bacteria Few /hpf; Squamous Epithelial Cells Not Seen /hpf (Few); White Blood Cells, Urine 25-50 /hpf (0-5)
== END | disposition home or self-care (01) ==
LOC: LAB 13:36 → LAB SHORT 13:36
PROVIDERS: Radiology Therapeutic Radiology
DX: R30.0 Dysuria (principal)
CPT/HCPCS: 81001; 87086

== ENCOUNTER 2019-08-25 11:59 | Day surgery (SDC) | payer OTHER ==
[~2019-08-25] VITALS: Ht 182.9 cm; Wt 87.0 kg
--- NOTE | 2019-08-25 13:05 | NUR ---
08/25/19 4422 Shanice Ortega PROCEDURE STOPPED JUST PAST THE SPLENIC FLEXURE. D/T POOR PREP. UNABLE TO REACH CECUM D/T THIS POOR PREP PER DR EWING.
--- NOTE | 2019-08-25 13:24 | NUR ---
08/25/19 1324 Shanice Ortega PT DENIES ANYTHING PO IN STEP DOWN.
[2019-08-26] MEDS ORDERED: Sucralfate1 GM PO (19:53)
== END 2019-08-25 13:40 | disposition home or self-care (01) ==
LOC: ORSCSDS 11:59
PROVIDERS: Internal Medicine Gastroenterology
PROC: 0DBM8ZX Excision of Descending Colon, Via Natural or Artificial Opening Endoscopic, Diagnostic (ICD-10-PCS; principal; 2019-08-25 13:30)
DX: Z12.11 Encounter for screening for malignant neoplasm of colon (principal); Z86.010 Personal history of colon polyps; D12.4 Benign neoplasm of descending colon; I25.10 Atherosclerotic heart disease of native coronary artery without angina pectoris; J44.9 Chronic obstructive pulmonary disease, unspecified; G47.33 Obstructive sleep apnea (adult) (pediatric); E78.5 Hyperlipidemia, unspecified; I12.9 Hypertensive chronic kidney disease with stage 1 through stage 4 chronic kidney disease, or unspecified chronic kidney disease; E11.22 Type 2 diabetes mellitus with diabetic chronic kidney disease; N18.9 Chronic kidney disease, unspecified; Z86.73 Personal history of transient ischemic attack (TIA), and cerebral infarction without residual deficits; Z79.4 Long term (current) use of insulin; Z79.899 Other long term (current) drug therapy
CPT/HCPCS: 82947; 88305; J2704; J7030; J7120

== ENCOUNTER 2019-08-27 09:53 | Inpatient (IN) | payer OTHER, MEDICARE ==
[~2019-08-27] VITALS: Ht 185.4 cm; Wt 113.4 kg
[~2019-08-27 09:53] MED LIST changes: +Sucralfate1 GM PO
[2019-08-27 10:20] LABS: PCO2 Arterial 55.3 mmHg (35-45)
[2019-08-27 10:20] LABS: Hematocrit 40.2 % (37.0-53.0); Hemoglobin 12.2 g/dL (13.5-17.5); Mean Corpuscular HGB 29.9 pg (26.0-34.0); Mean Corpuscular HGB Conc 30.3 g/dL (31.5-36.5); Platelet Count 163 K/mm3 (150-400); RDW Standard Deviation 53.7 fL (35.1-46.3); Red Blood Cell Count 4.08 M/mm3 (4.30-5.90); White Blood Cell Count 5.87 K/mm3 (4.00-11.30)
[2019-08-27 10:21] LABS: pH Blood Arterial 7.02 (7.35-7.45)
[2019-08-27 10:21] LABS: Mean Corpuscular Volume 99 fL (80-100)
[2019-08-27 10:34] LABS: International Normalized Ratio 1.14; Prothrombin Time Results 11.9 Sec (9.7-11.5)
[2019-08-27 10:43] LABS: Magnesium, Blood 2.3 mg/dL (1.6-2.4)
[2019-08-27 10:47] LABS: Albumin, Blood 2.2 g/dL (3.4-5.0); Albumin/Globulin Ratio 0.6 (0.8-1.8); Bilirubin, Total 0.3 mg/dL (0.1-1.0); Bun/Creatinine Ratio 27.3 (12.0-20.0); Calcium, Blood 9.1 mg/dL (8.5-10.1); Creatinine, Blood 3.11 mg/dL (0.60-1.20); Globulin, Blood 3.4 g/dL (2.2-4.0); Total Protein, Blood 5.6 g/dL (6.4-8.2); Troponin I 4.61 ng/mL (0.000-0.040)
[2019-08-27 10:48] LABS: BAND PERCENT MAN 5 % (0-8); BASOPHILS PERCENT MAN 0 % (0-2); EOSINOPHILS ABSOLUTE MAN 0.05 K/mm3 (0.00-0.68); EOSINOPHILS PERCENT MAN 1 % (0-6); LYMPHOCYTES % ATYPICAL MANUAL 4 % (0-0); LYMPHOCYTES ABSOLUTE MAN 1.46 K/mm3 (0.84-5.20); LYMPHOCYTES PERCENT MAN 21 % (21-46); MONOCYTES ABSOLUTE MAN 0.11 K/mm3 (0.16-1.47); MONOCYTES PERCENT MAN 2 % (4-13); MYELOCYTE ABSOLUTE MAN 0.05 K/mm3 (0.00-0.00); MYELOCYTE PERCENT MAN 1 % (0-0); NEUTROPHILS ABSOLUTE MAN 4.16 K/mm3 (1.96-9.15); SEG NEUTROPHILS PERCENT MAN 66 % (41-73); TOTAL CELLS COUNTED 100
--- NOTE | 2019-08-27 15:00 | NUR ---
PT INITIAL ASSESMENT PT [facility]VENTION AND FOLLOWING NUMEROUS CARIDAC ARRESTS. PT INTUBATED, UNRESPONSIVE AND ON HIGH DOSE EPI, LEVO, DOBUTAMINE QTTS TO MAINATIAM MAP GREATER THAN 60. 8.0 ETT AT 24 CMV 16 450 +5 100%. INITIAL SBP IN THE 70S VIA RIGHT FEMORAL SOFIE. HR PACED AT 60 VIA RIGHT FEMORAL VENOUS PACER. PT COLD AND CLAMMY, VASOACTIVE DRIPS TITRATED PER PROTOCOL AND MD ORDER. LEFT FEMORAL CENTRAL LINE IN PLACE AND INFUSING. 1 LITER LR GIVEN. TOLERATING VENT SETTINGS AT THIS TIME LABS AND ABG DRAWN. OG PLACED AND VERIFIED WITH ANTICOAGS PER MD ORDER GIVEN. UO MINIMAL CLEAR ANF YELLOW. MD BEDSIDE AND WILL CONT TO MONITOR.
[2019-08-27 15:39] LABS: PO2 Arterial 66.1 mmHg (80-100)
[2019-08-27 15:54] LABS: BASOPHILS ABSOLUTE AUTO 0.03 K/mm3 (0.00-0.23); BASOPHILS PERCENT AUTO 0 % (0-2); EOSINOPHILS ABSOLUTE AUTO 0.01 K/mm3 (0.00-0.68); EOSINOPHILS PERCENT AUTO 0 % (0-6); Hematocrit 32.3 % (37.0-53.0); Hemoglobin 9.6 g/dL (13.5-17.5); IMMATURE GRAN ABSOLUTE AUTO 0.14 K/mm3 (0.00-0.10); IMMATURE GRAN PERCENT AUTO 1 % (0-1); LYMPHOCYTES ABSOLUTE AUTO 0.38 K/mm3 (0.84-5.20); LYMPHOCYTES PERCENT AUTO 2 % (21-46); MONOCYTES ABSOLUTE AUTO 1.85 K/mm3 (0.16-1.47); MONOCYTES PERCENT AUTO 9 % (4-13); Mean Corpuscular HGB 29.2 pg (26.0-34.0); Mean Corpuscular HGB Conc 29.7 g/dL (31.5-36.5); Mean Corpuscular Volume 98 fL (80-100); Mean Platelet Volume 9.7 fL (9.1-12.4); NEUTROPHILS ABSOLUTE AUTO 18.69 K/mm3 (1.96-9.15); NEUTROPHILS PERCENT AUTO 89 % (41-73); NRBC ABSOLUTE 0.02 K/mm3 (0.00-0.02); NRBC Auto 0.1 /100 WBC (0.0-0.2); Platelet Count 195 K/mm3 (150-400); RDW Standard Deviation 53.5 fL (35.1-46.3); Red Blood Cell Count 3.29 M/mm3 (4.30-5.90)
--- NOTE | 2019-08-27 16:00 | NUR ---
PT UPDATE CARDIOLOGY MD AT BEDSIDE AND 12 LEAD OBTAINED. MD ADVISED RV HAD BEEN SIGNIFICANTLY COMPROMISED T/O THE PT COURSE. TITRATING VASOACTIVE MEDS ORDERED. PT SBP IN THE 60S-90S WITH MAPS 50 TO 60. MD AWARE AND BEDSIDE. CA, BICARB STARTED. FAMILY AT BEDSIDE AND ADVISED OF PT CONDITION. TOLERATING NREW VENT SETTINGS. PT LOCALIZING TO PAIN WITH SLUGGISH REACTIVE PUPILS. WILL CONT TO MONITOR
[2019-08-27 16:16] LABS: Magnesium, Blood 1.7 mg/dL (1.6-2.4)
[2019-08-27 16:23] LABS: Albumin, Blood 1.6 g/dL (3.4-5.0); Albumin/Globulin Ratio 0.6 (0.8-1.8); Bilirubin, Total 0.4 mg/dL (0.1-1.0); Bun/Creatinine Ratio 30.2 (12.0-20.0); Creatinine, Blood 2.22 mg/dL (0.60-1.20); Globulin, Blood 2.5 g/dL (2.2-4.0); Phosphorus, Blood 3.8 mg/dL (2.5-4.9); Total Protein, Blood 4.1 g/dL (6.4-8.2)
[2019-08-27 16:24] LABS: Calcium, Blood 6.5 mg/dL (8.5-10.1)
[2019-08-27 16:27] LABS: Source, Urine Catheter
--- NOTE | 2019-08-27 16:29 | NUR ---
review of pt care with product planner and nursing will await plan of care from physicians and prognosis. chaplian supporting family.
--- NOTE | 2019-08-27 16:41 | NUR ---
Spiritual Care inital note: Pt and sisters are well known to me. I was called to ED early in shift for code. T/C to sister, Patricia. Sister, Tamiko arrived. Saad lives with Patricia and has for many years. He has been her care-etymology professor of sorts as her health has declined. Saad has four remaining sisters and two brothers. He has a son, who is also named Saad. Stayed with this family throught cardiac intervention, providing a go between from physicians to family. Prayer provided at several points today. Pt's son, appears emotionally unstable, and easily overwhelmed. Per previous admission, pt wanted his sister to be his MPOA. I have printed this physician's note as well as Saad's POLST in chart. Sisters agree that Patricia is most likely who Saad meant to be MPOA. Several conversations with Patricia today as she is quite frail and at home. Family appears to understand Saad is critical. They are appreciaitve of calm presence and spiritual crisis counselor. Saad's sister, Tamiko has been here throughout day. She appears to be the most stable and reasonable family member at this time. Encouraged self-care and assured family of excellent medicalcare and attention. Pastoral services will remain available.
[2019-08-27 17:05] LABS: Bilirubin, Urine Neg (Neg); Blood, Urine 2+ (Neg); Glucose Qualitative, Urine 4+ (Neg); Ketones, Urine Neg (Neg); Leukocyte Esterase, Urine Neg (Neg); Nitrite, Urine Neg (Neg); Protein, Urine 4+ (Neg); Urobilinogen, Urine NORM (Normal)
[2019-08-27 17:10] LABS: Appearance, Urine Clear (Clear); Color, Urine Yellow (P-Yellow)
[2019-08-27 17:17] LABS: Amorphous Light (0-Heavy); Bacteria Mod /hpf; Red Blood Cells, Urine 0-2 /hpf (0-2); Squamous Epithelial Cells Few /hpf (Few)
--- NOTE | 2019-08-27 18:00 | NUR ---
PT UPDATE PT REMAINS ON HIGH DOSE VASOACTIVE QTTS AND WEANING TOLERATED NOW LEVO,VASO,LAW,EPI,BICARB, DOPAMINE TO MAINTAIN MAP ABOVE 60. PT EKG MORPHOLOGY HAS ALTERED, CARIOLOGIST NOTIFIED AND TO OBTAIN 12 LEAD, TITRATING QTTS UP RAPIDLY TO MAINTIAN MAP. CHASER TAR AT BEDSIDE, MD ADVISED, FAMILY NOTIFIED AT BEDSIDE OF PT RAPID DECLINE. PT PACED AT 80 WITH 100% CAPTURE, ALL QTTS MAXED PER MD PARAMETERS, SOFIE WAVEFORM PRESENT WITH SBP IN [id number], PT AGGITATED IN BED AND ATTEMPTING TO PULL AT TUBES AND LINES. CODE CART PLACED IN ROOM
[2019-08-27 18:42] LABS: Hematocrit 31.6 % (37.0-53.0); Hemoglobin 8.8 g/dL (13.5-17.5)
--- NOTE | 2019-08-27 19:00 | NUR ---
Code called and resuscitation efforts underway. Pt's sister (ANKITA) out in jasmine and is tearful. Litened as she expresses fears and concerns. Offered emotional support. This RN also offered emotional support for brother who is just outside of Pt's room. Kept family updated on resuscitation efforts. Doctor in charge of code speaks with family and educates on prognosis. Sister and family requests for resuscitation efforts to stop. Continued emotional support. Family requests for analytical chemistry teacher to visit. Relayed request to nursing pipe and boiler covers supervisor Ian. Palliative Care Ethnology Professor Amirah dailys to offer support. This RN offered condolences to family. Family expresses appreciation of support. Palliative Care will remain available.
== END 2019-08-27 18:38 | DRG 246 ==
LOC: ER 09:53 → ICUW 10:39 → ICUE 10:39
PROVIDERS: Emergency Medicine; Internal Medicine Critical Care Medicine; ADMIT Internal Medicine
PROC: 5A1935Z Respiratory Ventilation, Less than 24 Consecutive Hours (ICD-10-PCS; principal; 2019-08-27)
PROC: 027035Z Dilation of Coronary Artery, One Artery with Two Drug-eluting Intraluminal Devices, Percutaneous Approach (ICD-10-PCS; 2019-08-27)
PROC: 02C03ZZ Extirpation of Matter from Coronary Artery, One Artery, Percutaneous Approach (ICD-10-PCS; 2019-08-27)
PROC: 4A023N7 Measurement of Cardiac Sampling and Pressure, Left Heart, Percutaneous Approach (ICD-10-PCS; 2019-08-27)
PROC: B2111ZZ Fluoroscopy of Multiple Coronary Arteries using Low Osmolar Contrast (ICD-10-PCS; 2019-08-27)
PROC: B240ZZ3 Ultrasonography of Single Coronary Artery, Intravascular (ICD-10-PCS; 2019-08-27)
PROC: 3E033XZ Introduction of Vasopressor into Peripheral Vein, Percutaneous Approach (ICD-10-PCS; 2019-08-27)
PROC: 5A1223Z Performance of Cardiac Pacing, Continuous (ICD-10-PCS; 2019-08-27)
DX: I21.19 ST elevation (STEMI) myocardial infarction involving other coronary artery of inferior wall (principal); R40.2312 Coma scale, best motor response, none, at arrival to emergency department; R40.2112 Coma scale, eyes open, never, at arrival to emergency department; R40.2212 Coma scale, best verbal response, none, at arrival to emergency department; J96.91 Respiratory failure, unspecified with hypoxia; G93.1 Anoxic brain damage, not elsewhere classified; N18.4 Chronic kidney disease, stage 4 (severe); I48.20 Chronic atrial fibrillation, unspecified; I47.2 Ventricular tachycardia; J81.1 Chronic pulmonary edema; E78.5 Hyperlipidemia, unspecified; I46.2 Cardiac arrest due to underlying cardiac condition; E11.40 Type 2 diabetes mellitus with diabetic neuropathy, unspecified; F43.10 Post-traumatic stress disorder, unspecified; J44.9 Chronic obstructive pulmonary disease, unspecified; N18.3 Chronic kidney disease, stage 3 (moderate); E11.51 Type 2 diabetes mellitus with diabetic peripheral angiopathy without gangrene; Z79.01 Long term (current) use of anticoagulants; Z87.891 Personal history of nicotine dependence; E83.51 Hypocalcemia; F32.9 Major depressive disorder, single episode, unspecified; G25.81 Restless legs syndrome; K21.9 Gastro-esophageal reflux disease without esophagitis; Z79.4 Long term (current) use of insulin; C61 Malignant neoplasm of prostate; Z85.47 Personal history of malignant neoplasm of testis
CPT/HCPCS: 31720; 33210; 36415; 36556; 36600; 51702; 71045; 76937; 80053; 81001; 82330; 82533; 82803; 83735; 84100; 84484; 85014; 85018; 85025; 85347; 85610; 87086; 92950; 92978; 93005; 93010; 93458; 94002; 96374-59; 96375-59; 96376-59; 99152; 99153; 99291-25; C1725; C1751; C1753; C1769; C1874; C1887; C1894; C9606; J0171; J0282; J0690; J1170; J1265; J1644; J1720; J1815; J1940; J2001; J2250; J2370; J3010; J3246; J7030; J7040; J7060; J7070; J7120; Q9967